=== PATIENT | female | born 1945 | race Caucasian/White ===

== ENCOUNTER → 2017-03-29 | Outpatient (CLI) | payer MEDICARE ==
--- NOTE | 2017-03-29 15:20 | RAD ---
DATE: 03/29/2017. EXAM: MAMMO FREDY SCREENING BILATERAL. HISTORY: Routine mammographic screening. COMPARISON: 01/28/2015. This study was interpreted with the benefit of Computerized Aided Detection (CAD). FINDINGS: The breast parenchyma is dense, which could reduce sensitivity of mammography. Breast parenchyma level density D.. There are no suspicious masses, microcalcifications or architectural distortion. The parenchymal pattern is stable. BI-RADS CATEGORY: 1 NEGATIVE. RECOMMENDED FOLLOW-UP: 12M 12 MONTH FOLLOW-UP. PQRS compliance statement: Patient information was entered into a reminder system with a target due date 03/29/2018 for the next mammogram. Mammography is a sensitive method for finding small breast cancers, but it does not detect them all and is not a substitute for careful clinical examination. A negative mammogram does not negate a clinically suspicious finding and should not result in delay in biopsying a clinically suspicious abnormality. "Our facility is accredited by the [employer] Mammography Program."
--- NOTE | 2017-03-29 15:58 | RAD ---
CT chest without intravenous contrast History: Smoking history: 1.5 packs per day for 35 years. Comparison: None. Technique: Helical CT of the chest was performed without intravenous contrast. Exposure: One or more of the following individualized dose reduction techniques were utilized for this examination: 1. Automated exposure control 2. Adjustment of the mA and/or kV according to patient size 3. Use of iterative reconstruction technique Findings: Thyroid is heterogeneous. Left thyroid lobe demonstrates partially calcified nodule measuring 1.0 cm. There are probably smaller additional nodules involving the thyroid. Trachea and appears patent. Mild amount of intraluminal secretions can be seen involving both mainstem bronchi. No mediastinal lymphadenopathy is seen. Scattered calcified aortic atherosclerosis seen. Coronary artery calcifications are present. No pericardial thickening is identified. Mild centrilobular emphysematous changes of lungs are seen. Several small nonspecific soft tissue pulmonary nodules are seen. Right lower lobe demonstrates 3 mm soft tissue pulmonary nodule (axial image 61). Left lower lobe demonstrates 3 mm soft tissue pulmonary nodule (axial image 65). No acute airspace disease is seen. No pneumothorax or pleural effusion is identified. The visualized portions of both kidneys demonstrate small nonobstructing nephroliths measure up to 1 mm. Visualized liver demonstrates presence of 2 low-density lesions with the larger measuring 2.6 cm; these are not adequately characterized on this examination, but statistically should be cysts. Levoconvex degenerative scoliosis centered at the upper lumbar spine is seen. Impression: 1. Small nonspecific soft tissue pulmonary nodules measuring 3 mm. Lung-RADS 2: Benign appearance or behavior. Recommend annual screening with low dose CT in 12 months 2. Mild emphysema. 3. Incidental thyroid nodules. 4. Bilateral nephrolithiasis. 5. Low-density liver lesions, not adequately characterized on this examination, statistically should be cysts. Electronically signed by: Ruben Burch MD (03/29/2017 3:55 PM) [place] [id number]
== END | disposition home or self-care (01) ==
LOC: MAMMO 12:46
PROVIDERS: ATTEND Nurse Practitioner Family
DX: Z12.31 Encounter for screening mammogram for malignant neoplasm of breast (principal); J43.9 Emphysema, unspecified; E04.2 Nontoxic multinodular goiter; K76.9 Liver disease, unspecified; N20.0 Calculus of kidney; I70.0 Atherosclerosis of aorta; Z87.891 Personal history of nicotine dependence
CPT/HCPCS: 71250; 77063; 77067

== ENCOUNTER → 2017-04-14 | Outpatient (CLI) | payer MEDICARE ==
--- NOTE | 2017-04-14 13:19 | RAD ---
EXAM: Dual energy x-ray absorptiometry (DEXA). 04/14/2017 HISTORY: Post menopausal screening. Comparison: DEXA scan 01/02/2013 TECHNIQUE: Dual energy x-ray absorptiometry of the lumbar spine and right hip was performed. Calculation of bone mineral density based on standard deviations above or below the expected young adult normal value (T-score) was completed. FINDINGS: The average bone mineral density associated with L1-L4 is 1.360 g/cm^2, corresponding with a T-score of 1.5. The average bone mineral density associated with L1 is 0.852 g/cm^2, corresponding with a T-score of -2.3. The average total bone mineral density associated with right hip is 0.794 g/cm^2, corresponding with a T-score of -1.7. IMPRESSION: 1. Findings of osteopenia in the right hip. 2. Osteopenia at L1 vertebral body. 3. Normal bone mineral density L1-L4, however likely falsely elevated due to sclerotic degenerative changes. Note: Definitions established by the World Health Organization: 1. Normal: T-score is -1.0 or above the expected mean for a young adult. 2. Osteopenia: T-score is between -1.0 and -2.5. 3. Osteoporosis: T-score is -2.5 or below.
== END | disposition home or self-care (01) ==
LOC: DXRAD 10:22
PROVIDERS: ATTEND Nurse Practitioner Family
DX: M85.831 Other specified disorders of bone density and structure, right forearm (principal); M81.0 Age-related osteoporosis without current pathological fracture; Z78.0 Asymptomatic menopausal state
CPT/HCPCS: 77080

== ENCOUNTER → 2017-04-29 | Outpatient (CLI) | payer MEDICARE ==
[~2017-04-29] MED LIST: IOHEXOL 300 MG/ML 75 ML VIAL. IV ONE; IOHEXOL 300 MG/ML 75 ML VIAL. ONE
--- NOTE | 2017-04-29 18:08 | RAD ---
PQRS Compliance Statement: One or more of the following individualized dose reduction techniques were utilized for this examination: 1. Automated exposure control 2. Adjustment of the mA and/or kV according to patient size 3. Use of iterative reconstruction technique CT ABDOMEN PELVIS WO/W Clinical Indication: LIVER LESION, Comparison: CT chests without contrast March 29, 2017. Pelvic ultrasound, April 14, 2015. TECHNIQUE: Helical CT imaging of the abdomen and pelvis is performed precontrast. Helical CT imaging of the abdomen is performed after 75 cc Omnipaque 300 IV contrast during arterial phase. CT imaging of the abdomen and pelvis is then performed during portal venous phase. 10 minute delay phase acquisition of the abdomen. Findings: There is bilobed hepatic cyst or 2 adjacent cysts in the central liver near the caudate lobe and near the hepatic vein confluence. Largest component of the cyst measures 2.2 cm. There is a 1.2 cm cyst in segment 2/3. There is a tiny hypodensity in segment 4A that is too small to characterize, image 8 of series 6. Lung bases clear. Cardiac size normal. Coronary artery disease. The gallbladder, spleen, pancreas, and adrenal glands are normal. Atherosclerotic distal abdominal aorta and iliac arteries, no aneurysm. There are punctate nonobstructing bilateral renal calculi. Mild bilateral perinephric stranding. There is no hydronephrosis. No filling defect in the renal pelves on the delayed images. No obvious abnormality of the stomach. There is no dilated small bowel. There is moderate distal colon diverticulosis without obvious inflammation. No colon wall thickening. The appendix is normal. The urinary bladder is normal. Uterus is retroverted. There are several fibroids. There is an enhancing fibroid on the right measuring 3.5 cm. There are smaller partially calcified fibroids. No pelvic free fluid is seen. There is right convexity lumbar scoliosis. There is probably reactive endplate sclerosis on the left at L4/L5 and on the right at L2/L3. IMPRESSION: 1. No acute abdominal or pelvic abnormality. 2. Hepatic cysts. 3. Nonobstructing punctate bilateral renal calculi. 4. Myomatous uterus. 5. Moderate distal colon diverticulosis without diverticulitis. Electronically signed by: Roberto Hadley MD (04/29/2017 6:05 PM) [id number]
== END | disposition home or self-care (01) ==
LOC: CT 11:49
PROVIDERS: ATTEND Nurse Practitioner Family
DX: K76.89 Other specified diseases of liver (principal); K57.30 Diverticulosis of large intestine without perforation or abscess without bleeding; D25.9 Leiomyoma of uterus, unspecified; N20.0 Calculus of kidney; I70.0 Atherosclerosis of aorta; I25.10 Atherosclerotic heart disease of native coronary artery without angina pectoris; I10 Essential (primary) hypertension; Z87.891 Personal history of nicotine dependence
CPT/HCPCS: 74178; Q9967

== ENCOUNTER → 2017-05-02 | Outpatient (CLI) | payer MEDICARE ==
--- NOTE | 2017-05-02 15:20 | RAD ---
Thyroid ultrasound, 05/02/2017: History: Thyroid nodules seen on CT The right lobe of the gland measures 6.1 x 2.1 x 2.3 cm while the left lobe of the gland measures 5.6 x 1.9 x 1.8 cm. There are multiple nodules in both lobes of the gland. The largest nodule lies centrally in the right lobe and measures 2.2 x 1.9 x 1.9 cm. Its margins are smooth. It contains cystic and solid components. It contains vascular septations. It contains a few echogenic foci. The largest nodule on the left also lies centrally in the left lobe. It measures 2.0 x 1.5 x 1.2 cm. It contains cystic and solid components. There are internal and peripheral calcifications. There is color flow within thickened internal septae. Its margins appear smooth. There is a smaller predominantly cystic nodule in the lower pole of the left lobe of the gland with solid mural components. It measures 1.6 x 1.1 x 0.7 cm. No definite calcifications are seen. There is a 7 mm cyst in the upper pole of the right lobe of the gland. There is a 1.5 x 1.3 x 0.6 cm predominantly cystic lesion in the lower pole of the right lobe of the gland extending into the isthmus. Its margins are smooth. It contains a few echogenic foci. IMPRESSION: Multiple bilateral thyroid nodules as described above. While the sonographic characteristics are nonspecific, the complexity of some of these nodules and internal echogenic foci with calcifications are of some concern. Ultrasound-guided biopsy of the largest nodules in both lobes of the gland should be considered for further evaluation.
== END | disposition home or self-care (01) ==
LOC: US 10:42
PROVIDERS: ATTEND Nurse Practitioner Family
DX: E04.2 Nontoxic multinodular goiter (principal)
CPT/HCPCS: 76536

== ENCOUNTER → 2018-04-15 | Outpatient (CLI) | payer MEDICARE ==
--- NOTE | 2018-04-15 11:38 | RAD ---
CHEST PA LATERAL Technique: PA and lateral views of the chest were obtained. Clinical History: Cough x 3 weeks Comparison: June 08, 2013. Findings: The heart and pulmonary vasculature appear within normal limits. The lungs are hyperinflated. There is increased reticular opacities of lungs likely chronic pulmonary fibrosis. There is multiple old vertebral body compression fractures. Impression: Stable appearance of the chest. Electronically signed by: Ole Birmingham III, MD (04/15/2018 11:34 AM) [facility]
== END | disposition home or self-care (01) ==
LOC: PMG 09:53
PROVIDERS: ATTEND Physician Assistant Medical
DX: R05 Cough (principal); R91.8 Other nonspecific abnormal finding of lung field
CPT/HCPCS: 71046

== ENCOUNTER → 2018-07-31 | Outpatient (CLI) | payer MEDICARE ==
--- NOTE | 2018-08-01 12:42 | RAD ---
DATE: 07/31/2018 EXAM: MAMMO FREDY SCREENING BILATERAL HISTORY: Routine screening COMPARISON: 03/29/2017 This study was interpreted with the benefit of Computerized Aided Detection (CAD). Breast Density: DENSE The breast parenchyma is dense, which could reduce the sensitivity of mammography. Breast parenchyma level density D. FINDINGS: 2-D and 3-D tomosynthesis imaging was performed in CC and MLO projections. No new or enlarging breast densities are seen. No suspicious microcalcifications are evident. IMPRESSION: Stable mammograms without evidence of malignancy. BI-RADS CATEGORY: 1 NEGATIVE RECOMMENDED FOLLOW-UP: 12M 12 MONTH FOLLOW-UP PQRS compliance statement: Patient information was entered into a reminder system with a target due date for the next mammogram. Mammography is a sensitive method for finding small breast cancers, but it does not detect them all and is not a substitute for careful clinical examination. A negative mammogram does not negate a clinically suspicious finding and should not result in delay in biopsying a clinically suspicious abnormality. "Our facility is accredited by the [employer] Mammography Program."
== END | disposition home or self-care (01) ==
LOC: MAMMO 10:20
PROVIDERS: ATTEND Physician Assistant Medical
DX: Z12.31 Encounter for screening mammogram for malignant neoplasm of breast (principal)
CPT/HCPCS: 77063; 77067

== ENCOUNTER → 2018-07-31 | Outpatient (CLI) | payer MEDICARE ==
--- NOTE | 2018-07-31 12:01 | RAD ---
CT CHEST WO CONTRAST Indication: Follow-up lung nodules. Exposure: One or more of the following individualized dose reduction techniques were utilized for this examination: 1. Automated exposure control 2. Adjustment of the mA and/or kV according to patient size 3. Use of iterative reconstruction technique. Technique: Standard imaging without intravenous contrast. Comparison: March 29, 2017. FINDINGS: Small pulmonary nodules are poorly seen on today's study. No dominant mass is identified on today's study. No evidence of consolidating infiltrate. Emphysematous type changes are again noted. Trachea and mainstem bronchi are patent. Thyroid nodules are not seen. No evidence of significant lymph node enlargement. Coronary artery calcification. No significant pericardial or pleural effusion. Delayed The aorta is calcified. Ascending aorta is ectatic at 3.5 cm, unchanged. Degenerative spondylosis of the spine. No aggressive bone destruction. Scans the upper abdomen are limited by technique. Hypodense lesions of the liver redemonstrated likely cysts. Small renal calculi are identified, in the partially visualized upper kidneys, were also seen previously. No hydronephrosis in the upper kidneys. IMPRESSION: 1. Previously seen pulmonary nodules are difficult to visualize today. No new pulmonary mass. 2. Nephrolithiasis. Electronically signed by: Ruben South MD (07/31/2018 11:58 AM) [id number]
== END | disposition home or self-care (01) ==
LOC: CT 10:13
PROVIDERS: ATTEND Internal Medicine Critical Care Medicine
DX: N20.0 Calculus of kidney (principal); J43.9 Emphysema, unspecified; I25.10 Atherosclerotic heart disease of native coronary artery without angina pectoris; I70.0 Atherosclerosis of aorta; I77.819 Aortic ectasia, unspecified site
CPT/HCPCS: 71250

== ENCOUNTER → 2020-01-16 | Outpatient (CLI) | payer MEDICARE ==
[~2020-01-16] MED LIST changes: +IOHEXOL 240 MG/ML 50ML VIAL. ONE; +IOHEXOL 240 MG/ML 50ML VIAL. PO ONE; -IOHEXOL 300 MG/ML 75 ML VIAL. ONE
--- NOTE | 2020-01-16 14:51 | RAD ---
EXAM: DUAL ENERGY X-RAY ABSORPTIOMETRY (DEXA). HISTORY: Postmenopausal screening. FINDINGS: The lowest measured T-score is -2.3 in the right femoral neck, based on a bone mineral density of 0.71 g/cm^2. Refer to the worksheets for full detail. In comparison with the prior study of 04/14/2017, average bone mineral density at the lumbar spine has changed -3.2%, while the average density at the hips has changed +2.4%. IMPRESSION: Low bone mass. Bone mineral density yields a T-score between -1.0 and -2.5. Fracture risk is increased. FRAX was not calculated. METHODOLOGY: Dual energy x-ray absorptiometry was performed to measure bone mineral density. The following analysis is based on the 2019 Official Positions of the International Society for Clinical Densitometry: Measurements of the hips and the average of L1-L4 are preferred. When the spine and/or hip cannot be feasibly measured or interpreted, or in the setting of hyperparathyroidism, distal radial bone mineral density may be measured. The lumbar spine T-score is based on the average bone mineral density of L1-L4. In the setting of artifact or anatomic abnormality, some lumbar levels may be excluded, and the remaining levels used for calculation. A single lumbar level is not used for diagnosis, and if only a single level is available for assessment, another anatomic site will be used to assign a diagnosis. The hip T-score is based on the bone mineral density measurement of the femoral neck or total proximal femur of either side, whichever is lowest. Bilateral mean values are not used for diagnosis. The forearm T-score is derived from 33% of the distal radius of the nondominant forearm. For postmenopausal and perimenopausal women, and men age 50 or older, of all ethnic groups, T-scores are calculated through comparison of the current measurement with the NHANES III database standard for females aged 20-29 years. The lowest T-score of the evaluated anatomic sites is used to assign a diagnosis based on the World Health Organization densitometric classification. In premenopausal females and males younger than age 50, a Z-score is calculated based on population specific reference data for patient sex and self-reported ethnicity. Electronically signed by: Mina Quintanilla MD (01/16/2020 2:48 PM) [facility]
--- NOTE | 2020-01-16 17:40 | RAD ---
DATE: 01/16/2020 2:10 PM EXAM: DIGITAL SCREEN BILAT W/CAD HISTORY: Screening COMPARISON: 07/31/2018 Bilateral full field craniocaudal and mediolateral oblique images were obtained using digital technique. This study was interpreted with the benefit of Computerized Aided Detection (CAD). FINDINGS: Breast Density: DENSE The breast Parenchyma is dense, which could reduce the sensitivity of mammography. Breast parenchyma level density D. No suspicious masses, microcalcifications or architectural distortion is present to suggest malignancy in either breast. The visualized axillae are unremarkable. IMPRESSION: No mammographic evidence of malignancy. BI-RADS CATEGORY: 1 NEGATIVE RECOMMENDED FOLLOW-UP: 12M 12 MONTH FOLLOW-UP Annual screening mammography is recommended, unless clinically indicated sooner based on symptoms or change in physical exam. PQRS compliance statement: Patient information was entered into a reminder system with a target due date for the next mammogram. Mammography is a sensitive method for finding small breast cancers, but it does not detect them all and is not a substitute for careful clinical examination. A negative mammogram does not negate a clinically suspicious finding and should not result in delay in biopsying a clinically suspicious abnormality. "Our facility is accredited by the [employer] Mammography Program."
--- NOTE | 2020-01-16 17:57 | RAD ---
CT scan of the abdomen and pelvis with contrast 01/16/2020 CLINICAL HISTORY: History of liver lesion. TEHNIQUE: After the oral and intravenous ministration contrast, contiguous, 5 mm axial sections were obtained through the abdomen and pelvis. 75 cc of Omnipaque 300 were administered intravenously during this examination. One or more of the following individualized dose reduction techniques were utilized for this study: 1. Automated exposure control. 2. Adjustment of the mA and/or kV according to patient size. 3. Use of iterative reconstruction technique. FINDINGS: Comparison studies dated 04/29/2017. Images through the lung bases demonstrate minimal dependent subsegmental atelectasis bilaterally. Several low-attenuation lesions are seen involving the liver which measure 5 mm to 3.8 cm in size. They are consistent with hepatic cysts. No new abnormality of the liver is seen. The spleen, pancreas, and adrenal glands are within normal limits. Nonobstructing calculi are seen involving both kidneys which measure 2 to 3 mm in size. Atherosclerotic calcification abdominal aorta and its branches is seen. The abdominal aorta tapers normally. No free fluid or free air is within the abdomen. There is no evidence of bowel obstruction. Images through the pelvis demonstrated the urinary bladder distended with urine. Calcified fibroids are seen throughout the uterus. These measure 2 to 3.6 cm in size. Calcifications are seen within the pelvis consistent with phleboliths. No adnexal mass is seen. No free fluid is noted. Scattered diverticula are seen involving the sigmoid colon. No inflammatory changes are seen adjacent fat. Mild to moderate S-shaped curvature of the thoracolumbar spine is seen. Degenerative changes are seen involving the lower thoracic and throughout the lumbar spine along with both hips. IMPRESSION: 1. Stable CT appearance of the hepatic cysts involving the liver. No further imaging follow-up is recommended. 2. No acute abnormality is seen. Electronically signed by: Trey Law MD (01/16/2020 5:55 PM) [id number]
--- NOTE | 2020-01-16 18:09 | RAD ---
CT scan of the chest without contrast 01/16/2020 CLINICAL HISTORY: History of pulmonary nodule. TECHNIQUE: Unenhanced, contiguous, 3 mm axial sections were obtained through the chest and upper abdomen. One or more of the following individualized dose reduction techniques were utilized for this study: 1. Automated exposure control. 2. Adjustment of the mA and/or kV according to patient size. 3. Use of iterative reconstruction technique. FINDINGS: Comparison study is dated 07/31/2018. Atherosclerotic calcification of the thoracic aorta and its branches is seen. The thoracic aorta is tortuous but tapers normally. The heart is mildly enlarged. Scattered coronary calcifications are seen. No hilar, mediastinal or axillary lymphadenopathy is noted. Emphysematous changes are seen involving both lungs. No pulmonary nodule or mass is seen. Minimal dependent subsegmental atelectasis is seen involving both lungs. No area of consolidation is noted. No pleural effusion or pneumothorax is seen. Images through the upper abdomen demonstrate small nonobstructing renal calculi which measure 2 mm in size. Atherosclerotic calcification of the abdominal aorta is noted. Low-attenuation lesions are seen involving the liver consistent with hepatic cysts. These measure 5 mm to 3.5 cm in size. Very mild S-shaped curvature of the thoracolumbar spine is seen. Degenerative changes are seen involving the thoracic spine. IMPRESSION: No acute abnormality is seen. No pulmonary nodule is identified. Electronically signed by: Trey Law MD (01/16/2020 6:06 PM) [place] [id number]
== END ==
LOC: MAMMO 14:05
PROVIDERS: ATTEND Physician Assistant
DX: Z12.31 Encounter for screening mammogram for malignant neoplasm of breast (principal); K76.9 Liver disease, unspecified; K76.89 Other specified diseases of liver; N20.0 Calculus of kidney; I70.0 Atherosclerosis of aorta; N32.89 Other specified disorders of bladder; D25.9 Leiomyoma of uterus, unspecified; I87.8 Other specified disorders of veins; M43.8X5 Other specified deforming dorsopathies, thoracolumbar region; K57.30 Diverticulosis of large intestine without perforation or abscess without bleeding; M47.815 Spondylosis without myelopathy or radiculopathy, thoracolumbar region; M16.0 Bilateral primary osteoarthritis of hip; R91.1 Solitary pulmonary nodule; M81.8 Other osteoporosis without current pathological fracture
CPT/HCPCS: 71250; 74177; 77067; 77080; Q9966; Q9967

== ENCOUNTER → 2021-03-05 | Outpatient (CLI) | payer MEDICARE, OTHER ==
--- NOTE | 2021-03-05 16:22 | RAD ---
Study: CT chest, abdomen and pelvis without contrast INDICATION: Pulmonary nodule and liver lesion follow-up. COMPARISON: Most recently on 01/16/2020 TECHNIQUE: Helical CT imaging performed of the chest, abdomen and pelvis without the use of intraveno us contrast. Coronal and sagittal reformats were obtained. One or more of the following individualized dose reduction techniques were utilized for this examinat ion: 1. Automated exposure control 2. Adjustment of the mA and/or kV according to patient size 3. Use of iterative reconstruction technique. FINDINGS: Inherently limited study without contrast. CT Chest: Advanced emphysema. No significant new or enlarging pulmonary nodule. No central airway occlusion or pleural effusion. Scattered calcific atherosclerosis. Unchanged aortic luminal dimensions. No significant mediastinal o r hilar lymph node enlargement. Lymph node or cisterna chyli dilatation to the right of the thoracic aorta approaching the diaphragmatic hiatus is unchanged. No newly seen abnormality at the lower neck, axilla or chest wall. Diffuse osteopenia. Asymmetric arthrosis at the right shoulder. No fracture or focally aggressive abnormality. CT Abdomen/Pelvis: Unchanged liver. Several cystic foci have not changed in size. No newly seen abnormality of the gallb ladder, biliary tree, pancreas, spleen or adrenal glands. A few small bilateral intrarenal stones. Mi ld prominence of the renal pelvis on both the right and left is either unchanged or less pronounced. No hydronephrosis. The ureters are difficult to visualize in their entirety but there is no evidence for hydroureter. Unremarkable bladder. Redemonstration of multiple uterine fibroids several of which are densely calcified. No newly apparent adnexal mass. Limited evaluation of the bowel and stomach without positive oral contrast. No gastric wall emphysema . No pathologic dilatation of small bowel to indicate obstruction. Colonic diverticulosis. No appreci able inflammation to indicate diverticulitis. Extensive calcific atherosclerosis. Aortic tortuosity without aneurysmal dilatation. Limited assessme nt for mesenteric and pelvic lymph nodes secondary to patient body habitus with closely apposed small bowel. No definitive lymphadenopathy has developed. No free fluid or pneumoperitoneum. Osteopenia and multifocal arthrosis/spondylosis. Thoracolumbar levoscoliosis again noted. Advanced foster mbar discogenic arthrosis at several levels with prominent endplate sclerosis. Mild chronic height lo ss superiorly at L1. IMPRESSION: CT Chest: 1. No significant new nodule or enlargement of pre-existing millimetric nodules. Background emphysem a. Annual low-dose CT of the chest could be performed assuming the patient meets screening guidelines . 2. Multiple unchanged/chronic observations outlined in the body of the report. CT Abdomen/Pelvis: 1. Several hepatic cystic foci are no different in size from 01/16/2020. No dedicated follow-up is ne eded based on stability and density unless there is some pertinent history that was not provided that would indicate surveillance. 2. No appreciable lymphadenopathy throughout the abdomen or pelvis. No acute abnormality with multip le chronic findings described above. Electronically signed by: KRIS VALIENTE MD (03/05/2021 4:19 PM) [facility]
--- NOTE | 2021-03-06 16:03 | RAD ---
Bilateral digital screening mammogram (2-D): Reason for examination: Routine screening. Comparison: Mammograms from January 16, 2020 and 07/31/2018. Interpretation was made with the benefit of CAD. FINDINGS: Breast density: D. There is extremely dense fibroglandular tissue, which lowers sensitivity of mammog claudette. No dominant suspicious breast mass, malignant appearing calcifications, or architectural distortion i s seen. IMPRESSION: No evidence of malignancy. The breasts are extremely dense, which lowers sensitivity of mammography. Assessment: BI-RADS 1. Negative. Recommendation: Routine screening mammograms. Your patient's mammogram demonstrates that she has dense breast tissue (breast density category C or D), which could hide abnormalities, and if she has other risk factors for breast cancer that have bee n identified, she might benefit from supplemental screening tests that may be suggested by you as her ordering physician. Dense breast tissue, in and of itself, is a relatively common condition. Therefo re, this information is not provided to cause undue concern, but rather to raise your awareness and t o promote discussion with your patient regarding the presence of other risk factors, in addition to d ense breast tissue. This patient's information has been entered into a reminder system for the patient to be notified wit h the results of her examination by mail and a target date for the next mammogram. A reminder letter will be generated. Electronically signed by: Brynn Seo MD (03/06/2021 4:01 PM) [id number]
== END ==
LOC: CT 13:52
PROVIDERS: ATTEND Physician Assistant Medical
DX: Z12.31 Encounter for screening mammogram for malignant neoplasm of breast (principal); I77.810 Thoracic aortic ectasia; D25.9 Leiomyoma of uterus, unspecified; N20.0 Calculus of kidney; K57.30 Diverticulosis of large intestine without perforation or abscess without bleeding; K76.89 Other specified diseases of liver; Q25.46 Tortuous aortic arch; M41.85 Other forms of scoliosis, thoracolumbar region; M19.011 Primary osteoarthritis, right shoulder; M85.88 Other specified disorders of bone density and structure, other site; M47.816 Spondylosis without myelopathy or radiculopathy, lumbar region
CPT/HCPCS: 71250; 74176; 77067